=== PATIENT | female | born 1960 | race Caucasian/White ===

== ENCOUNTER 2016-12-24 10:32 | Day surgery (SDC) | payer OTHER ==
[~2016-12-24 10:32] MED LIST: ARAVA20 M1 PO; CALCIUM WITH V1 EAC2 PO; DICLOFENAC SODI75 M2 PO; FISH OIL 11000 MG/CA PO; FLEXERIL10 MG PO; HUMIRA CRO40 MG/0.8 IM; HYDROCODON-ACE1 EAC7 PO; NORCO 5/325 TAB1 TAB PO; OMEPRAZOLE40 M2 PO; PLAQUENIL200 M1 PO; TYLENOL PO; VISTARIL25 M1 PO; VITAMIN B COMP1 EAC1 PO; VITAMIN C PO
[2016-12-25] MEDS ORDERED: NORCO 5-325 TA1 EACH PO (09:24)
[2016-12-25] MEDS ORDERED: TYLENOL325 M2 PO (12:21)
[2016-12-25] MEDS ORDERED: SENOKOT8.6 M1 PO (12:24)
== END 2016-12-25 12:58 ==
LOC: SRG 10:32 → SHSA 10:37 → PACU 14:01 → 5EB 15:16
PROC: 0SB20ZZ Excision of Lumbar Vertebral Disc, Open Approach (ICD-10-PCS; principal; 2016-12-24)
PROC: 01NB0ZZ Release Lumbar Nerve, Open Approach (ICD-10-PCS; 2016-12-24)
DX: M48.06 Spinal stenosis, lumbar region (principal); M51.17 Intervertebral disc disorders with radiculopathy, lumbosacral region; Z79.899 Other long term (current) drug therapy; Z98.51 Tubal ligation status; I73.9 Peripheral vascular disease, unspecified; M06.9 Rheumatoid arthritis, unspecified; Z88.8 Allergy status to other drugs, medicaments and biological substances; Z88.0 Allergy status to penicillin; Z88.6 Allergy status to analgesic agent; Z91.040 Latex allergy status; Z87.891 Personal history of nicotine dependence
CPT/HCPCS: G8978-GP-CI; G8980-GP-CH; G8980-GP-CI; J0690